=== PATIENT | male | born 1950 | race Caucasian/White ===

== ENCOUNTER 2017-03-08 11:01 | Emergency (ER) | payer MEDICARE, MEDICAID ==
[2017-03-08 11:49] LABS: BASOPHILS 0.6 % (0-2); EOSINOPHILS 3.5 % (0-7); HEMATOCRIT 38.9 % (42.0-54.0); HEMOGLOBIN 13.7 g/dL (13.5-17.5); IMMATURE GRANULOCYTES 0.2 % (0-5); LYMPHOCYTES 24.6 % (15-50); MCH 33.2 pg (26.0-34.0); MCHC 35.2 g/dL (31.0-37.0); MCV 94.2 fL (80.0-100.0); MEAN PLATELET VOLUME 9.7 fL (7.4-10.4); NEUTROPHILS 61.1 % (40-80); PLATELET COUNT 207 10x3/uL (130-400); RBC 4.13 10x6/uL (4.20-6.10); RDW 12.9 % (11.5-14.5); WBC 5.4 10x3/uL (4.8-10.8)
[2017-03-08 12:05] LABS: ANION GAP 14.1 mmol/L (8-16); BILIRUBIN - TOTAL 0.55 mg/dL (0.2-1.3); CALCIUM 9.4 mg/dL (8.5-10.1); CARBON DIOXIDE 24.7 mmol/L (21.0-32.0); CREATININE - SERUM 1.1 mg/dL (0.6-1.3); POTASSIUM - SERUM 3.8 mmol/L (3.5-5.1); PROTEIN - SERUM 8.7 g/dL (6.4-8.2)
[2017-03-08 12:30] LABS: APPEARANCE CLEAR (CLEAR); BILIRUBIN NEGATIVE (NEGATIVE); COLOR YELLOW (YELLOW); GLUCOSE NEGATIVE (NEGATIVE); KETONE NEGATIVE (NEGATIVE); NITRITE NEGATIVE (NEGATIVE); PROTEIN NEGATIVE (NEGATIVE); UROBILINOGEN NORMAL (NORMAL)
== END 2017-03-08 12:47 | disposition home or self-care (01) ==
LOC: D.ER 11:01
PROVIDERS: Emergency Medicine; Nurse Practitioner Acute Care
DX: I10 Essential (primary) hypertension (principal)

== ENCOUNTER 2017-10-09 08:25 | Emergency (ER) | payer MEDICARE, MEDICAID ==
[2017-10-09 10:27] LABS: BASOPHILS 0.8 % (0-2); EOSINOPHILS 4.3 % (0-7); HEMATOCRIT 45.4 % (42.0-54.0); HEMOGLOBIN 16.3 g/dL (13.5-17.5); IMMATURE GRANULOCYTES 0.2 % (0-5); LYMPHOCYTES 35.6 % (15-50); MCH 33.6 pg (26.0-34.0); MCHC 35.9 g/dL (31.0-37.0); MCV 93.6 fL (80.0-100.0); MEAN PLATELET VOLUME 10.1 fL (7.4-10.4); MONOCYTES 11.7 % (2-11); NEUTROPHILS 47.4 % (40-80); PLATELET COUNT 199 10x3/uL (130-400); RBC 4.85 10x6/uL (4.20-6.10); RDW 12.8 % (11.5-14.5)
[2017-10-09 11:09] LABS: ALBUMIN 3.8 g/dL (3.4-5.0); ALKALINE PHOSPHATASE 64 U/L (46-116); ALT (SGPT) 59 U/L (10-68); BILIRUBIN - TOTAL 1.33 mg/dL (0.2-1.3); CALC OSMOLALITY 275 mosm/kg (275-300); CALCIUM 9.5 mg/dL (8.5-10.1); CARBON DIOXIDE 21.6 mmol/L (21.0-32.0); CHLORIDE - SERUM 102 mmol/L (98-107); CREATINE KINASE 420 UL (21-232); CREATININE - SERUM 0.8 mg/dL (0.6-1.3); GLUCOSE 126 mg/dL (74-106); PROTEIN - SERUM 8.4 g/dL (6.4-8.2); SODIUM 136 mmol/L (136-145); T4 THYROXIN - FREE 0.91 ng/dL (0.76-1.46); UREA NITROGEN 19 mg/dL (7-18); eGFR NON AFRICAN AMERICAN > 90 mL/min (90-120)
[2017-10-09 11:12] LABS: CKMB 6.7 U/L (0.0-3.6)
== END 2017-10-09 12:10 | disposition home or self-care (01) ==
LOC: D.ER 08:25
PROVIDERS: Emergency Medicine
DX: I10 Essential (primary) hypertension (principal); I48.91 Unspecified atrial fibrillation; I45.10 Unspecified right bundle-branch block

== ENCOUNTER → 2018-04-08 11:11 | Outpatient (CLI) | payer MEDICARE, MEDICAID | END | disposition home or self-care (01) | LOC: D.LAB 11:11 | DX: I10 Essential (primary) hypertension (principal); E78.5 Hyperlipidemia, unspecified; R79.89 Other specified abnormal findings of blood chemistry; E11.9 Type 2 diabetes mellitus without complications ==

== ENCOUNTER 2018-06-01 09:40 | Emergency (ER) | payer MEDICARE, MEDICAID ==
[~2018-06-01] VITALS: Ht 172.7 cm; Wt 95.5 kg
[2018-06-01 09:47] VITALS: Ht 172.7 cm; Wt 95.5 kg
[2018-06-01 10:08] LABS: BASOPHILS 0.7 % (0-2); EOSINOPHILS 3.3 % (0-7); HEMATOCRIT 45.7 % (42.0-54.0); HEMOGLOBIN 16.6 g/dL (13.5-17.5); IMMATURE GRANULOCYTES 0.1 % (0-5); LYMPHOCYTES 37.8 % (15-50); MCH 33.6 pg (26.0-34.0); MCHC 36.3 g/dL (31.0-37.0); MCV 92.5 fL (80.0-100.0); MEAN PLATELET VOLUME 10.2 fL (7.4-10.4); MONOCYTES 7.6 % (2-11); NEUTROPHILS 50.5 % (40-80); PLATELET COUNT 218 10x3/uL (130-400); RBC 4.94 10x6/uL (4.20-6.10); RDW 12.9 % (11.5-14.5); WBC 6.9 10x3/uL (4.8-10.8)
[2018-06-01 10:12] LABS: INR 1.02 (0.85-1.17); PROTIME 12.9 SECONDS (11.6-15.0)
[2018-06-01 10:13] LABS: APTT 35.8 SECONDS (22.8-39.4)
[2018-06-01 10:28] LABS: ALBUMIN 3.8 g/dL (3.4-5.0); ALKALINE PHOSPHATASE 48 U/L (46-116); BILIRUBIN - TOTAL 0.84 mg/dL (0.2-1.3); CALCIUM 8.6 mg/dL (8.5-10.1); CARBON DIOXIDE 21.1 mmol/L (21.0-32.0); CHLORIDE - SERUM 102 mmol/L (98-107); CKMB 4.4 U/L (0.0-3.6); CREATINE KINASE 220 UL (21-232); MAGNESIUM - SERUM 1.8 mg/dL (1.8-2.4); POTASSIUM - SERUM 3.9 mmol/L (3.5-5.1); PROTEIN - SERUM 8.6 g/dL (6.4-8.2); SODIUM 137 mmol/L (136-145); TROPONIN-I < 0.017 ng/mL (0.000-0.060); UREA NITROGEN 18 mg/dL (7-18); eGFR NON AFRICAN AMERICAN 80 mL/min (90-120)
[2018-06-01 10:29] LABS: CALC OSMOLALITY 282 mosm/kg (275-300); GLUCOSE 222 mg/dL (74-106)
[2018-06-01 10:39] LABS: ALT (SGPT) 77 U/L (10-68)
[2018-06-01 13:00] VITALS: BP 124/81
--- NOTE | 2018-06-01 14:36 | CN ---
PATIENT NAME:YOBANI MARSHALL MEDICAL RECORD: [id number] : 54 LOCATION:.ER ADMIT DATE: ACCOUNT: [id number] CONSULTING PHYSICIAN: MARY ANNE MCALLISTER MD REFERRING PHYSICIAN: CALIN DUKE MD DATE OF CONSULTATION: 06/01/2018 CARDIOLOGY CONSULT DIAGNOSES: 1. Angina. 2. Coronary artery disease. 3. Previous PTCA and stent. 4. Paroxysmal atrial fibrillation. 5. Hypertension. 6. Hyperlipidemia. HISTORY: Mr. Marshall presents with chest tightness and palpitations, found to be in atrial fibrillation with rapid ventricular response. He was given 5 mg of IV Cardizem, converted to sinus rhythm. He has a history of atrial fibrillation. This is his third episode of atrial fibrillation. Followed by Dr. Bean at [facility]. He does have a history of cardiac stents, the last being in November of last year. His EKG was with no acute ST-T abnormalities during the atrial fibrillation. His troponin is normal. His chest discomfort resolved with resolution of the atrial fibrillation. He is on Coreg for the atrial fibrillation. PHYSICAL EXAMINATION: GENERAL APPEARANCE: Well-nourished, well-developed, appears stated age. Level of distress, comfortable. PSYCHIATRIC: Mental status, alert, normal affect. Orientation, oriented to time, place and person. EYES: Lids and conjunctiva, noninjected. No discharge, no pallor. ENT: Lips, teeth, gums, normal dentition. Oropharynx, no cyanosis, no pallor. NECK: Carotid arteries, bilateral normal upstroke, no bruits, no thrills. JUGULAR VEINS: No jugular venous pressure or distention. CERVICAL LYMPH NODES: Nontender, nonenlarged. THYROID: Not enlarged. Nontender. No nodules. LUNGS: Respiratory effort, unlabored. CHEST: Normal curvature. No thoracic deformity. No chest wall tenderness. Percussion, resonant. Auscultation, clear. No wheezes, no rales, no rhonchi. CARDIOVASCULAR: Precordial exam, nondisplaced. No heaves or pericardial thrills. Rate and rhythm, regular. Heart sounds, normal S1, normal S2. No S3, no gallop, no rub. Systolic murmur, not heard. Diastolic murmur, not heard. EXTREMITIES: No cyanosis, no edema. Peripheral pulses, full and equal in all extremities, except as noted. No bruits appreciated. ABDOMEN: Soft, nondistended. Normal aorta. No bruit. Nontender. No masses. Liver, nontender, no hepatomegaly. Spleen, nontender, no splenomegaly. MUSCULOSKELETAL: No joint tenderness. No joint swelling. No erythema. NEUROLOGICAL: Normal gait, normal strength, normal tone. SKIN: Warm and dry. OVERALL IMPRESSION: Paroxysms of atrial fibrillation, now controlled and in sinus rhythm on Coreg. We will discontinue the Coreg and switch him to sotalol. He is to follow up with Dr. Bean within the next month. CONSULT REPORT [id number] YOBANI MARSHALL TRANSINT:[id number] Voice Confirmation ID: [id number] DOCUMENT ID: [id number] MARY ANNE MCALLISTER MD at 1436 CC: [id number] DICTATION DATE: 06/01/18 1210 NAIL GALVANIZER: 06/01/18 1311 DEP ER 06/01/18 [id number] [place] [id number]
== END 2018-06-01 13:00 | disposition home or self-care (01) ==
LOC: D.ER 09:40
PROVIDERS: Emergency Medicine
DX: I48.91 Unspecified atrial fibrillation (principal); Z86.79 Personal history of other diseases of the circulatory system; I10 Essential (primary) hypertension; I45.10 Unspecified right bundle-branch block